=== PATIENT | female | born 1960 | race Caucasian/White ===

== ENCOUNTER 2017-05-31 00:29 | Emergency (ER) | payer BC ==
[~2017-05-31] VITALS: Ht 157.5 cm; Wt 68.5 kg
[~2017-05-31 00:29] MED LIST: HYDR-3533 PO; METO100T PO; NAPR500 PO; TYLE3 PO
[2017-05-31 00:33] VITALS: RESP 18
--- NOTE | 2017-05-31 00:40 | PD ---
HPI Chief Complaint: fall Time Seen by Provider: 00:34 Travel History International Travel<30 days: No Contact w/Intl Traveler<30days: No Traveled to known affect area: No History of Present Illness HPI Patient was at home, drinking alcohol and socializing with her friends, when she misstepped and fell down on her outstretched hands. The patient is mainly complaining of tingling to her hands. No major deformity. Patient states that she has carpal tunnel. Patient denies that she lost consciousness. Patient denies any alleviating or aggravating factors. Patient denies any associated factors such as fever, headache, rash, chest pain, abdominal pain, back pain nausea, vomiting, or diarrhea. No known drug allergy Past medical history significant for hypertension, lap band, PFSH Past Medical History Cardiovascular Problems: Yes (BP) Diminished Hearing: No Hypertension: Yes Musculoskeletal: Yes (BILATERAL KNEES) Past Surgical History Abdominal Surgery: Yes (LAP BAND) Social History Alcohol Use: Yes (SOCIALLY) Tobacco Use: Yes Substance Use: No Allergies-Medications (Allergen,Severity, Reaction): Coded Allergies: No Known Allergies (Verified Adverse Reaction, Unknown, 05/31/17) Reported Meds & Prescriptions Reported Meds & Active Scripts Active Active Prescriptions or Reported Medications Unobtainable Review of Systems General / Constitutional: No: Fever Eyes: No: Visual changes HENT: No: Headaches Cardiovascular: No: Chest Pain or Discomfort Respiratory: No: Shortness of Breath Gastrointestinal: No: Abdominal Pain Genitourinary: No: Dysuria Musculoskeletal: No: Pain Skin: No Rash Neurologic: Positive: Paresthesia (To bilateral hands.) Psychiatric: No: Depression Endocrine: No: Polydipsia Hematologic/Lymphatic: No: Easy Bruising Physical Exam Narrative GENERAL: SKIN: Warm and dry. HEAD: Normocephalic. Abrasion to mid forehead EYES: Pupils equal and round. No scleral icterus. No injection or drainage. ENT: No nasal bleeding or discharge. Mucous membranes pink and moist. NECK: Trachea midline. No JVD. CARDIOVASCULAR: Regular rate and rhythm. RESPIRATORY: No accessory muscle use. Clear to auscultation. Breath sounds equal bilaterally. GASTROINTESTINAL: Abdomen soft, non-tender, nondistended. MUSCULOSKELETAL: Extremities without clubbing, cyanosis, or edema. No obvious deformities. NEUROLOGICAL: Awake and alert. No obvious cranial nerve deficits. Motor grossly within normal limits. Five out of 5 muscle strength in the arms and legs. Normal speech. PSYCHIATRIC: Appropriate mood and affect; insight and judgment normal. Data Data Last Documented VS Vital Signs Date Time Temp Pulse Resp B/P (MAP) Pulse Ox O2 Delivery O2 Flow Rate FiO2 05/31/17 00:52 98.6 71 18 157/86 (109) 98 Room Air Orders Orders Ct Brain W/O Iv Contrast(Rout) (05/31/17 00:34) Blood Glucose (05/31/17 00:34) MDM Medical Decision Making Medical Screen Exam Complete: Yes Emergency Medical Condition: Yes Medical Record Reviewed: Yes Differential Diagnosis Intracranial hemorrhage versus skull contusion versus carpal tunnel Narrative Course on patient evaluation, patient was noted to have a small abrasion to her forehead. Due to this evidence of traumatic blunt head trauma, the patient will have a CT head prior to discharge. CT head read by radiologist as normal examination. Diagnosis Primary Impression: Paresthesia due to carpal tunnel syndrome Additional Impression: Forehead abrasion Patient Instructions: Abrasion (ED), Carpal Tunnel Syndrome (DC), General Instructions Scripts Unable to Obtain Active Prescriptions or Reported Meds Disposition: 01 DISCHARGE HOME Condition: Stable Arnaldo May MD May 31, 2017 00:40
[2017-05-31 00:52] VITALS: BP 157/86; PULSE 71; RESP 18; TEMP 98.6; O2SAT 98
--- NOTE | 2017-05-31 01:47 | RADRPT ---
EXAM DATE/TIME: 05/31/2017 01:23 [facility] COMPARISON: No previous studies available for comparison. INDICATIONS : Trauma, fall. RADIATION DOSE: 56.37 CTDIvol (mGy) ; Patient motion MEDICAL HISTORY : Hypertension. SURGICAL HISTORY : None. ENCOUNTER: Initial ACUITY: 1 day PAIN SCALE: 0/10 LOCATION: cranial TECHNIQUE: Multiple contiguous axial images were obtained of the head. Using automated exposure control and adj ustment of the mA and/or kV according to patient size, radiation dose was kept as low as reasonably a chievable to obtain optimal diagnostic quality images. DICOM format image data is available electro nically for review and comparison. FINDINGS: CEREBRUM: The ventricles are normal for age. No evidence of midline shift, mass lesion, hemorrhage or acute in farction. No extra-axial fluid collections are seen. POSTERIOR FOSSA: The cerebellum and brainstem are intact. The 4th ventricle is midline. The cerebellopontine angle i s unremarkable. EXTRACRANIAL: The visualized portion of the orbits is intact. SKULL: The calvaria is intact. No evidence of skull fracture. CONCLUSION: No acute disease. Don Lopez Jr., MD on May 31, 2017 at 1:45 Board Certified Radiologist. This report was verified electronically.
== END 2017-05-31 02:17 | disposition home or self-care (01) ==
LOC: PHED 00:29
DX: R20.2 Paresthesia of skin (principal); G56.00 Carpal tunnel syndrome, unspecified upper limb; S00.81XA Abrasion of other part of head, initial encounter; I10 Essential (primary) hypertension; W01.198A Fall on same level from slipping, tripping and stumbling with subsequent striking against other object, initial encounter; Y92.009 Unspecified place in unspecified non-institutional (private) residence as the place of occurrence of the external cause; Z72.0 Tobacco use
CPT/HCPCS: 70450; 99284

== ENCOUNTER 2018-03-26 05:24 | Inpatient (IN) ==
[2018-03-26] MEDS ORDERED: Ropivacaine 0.5% PF Inj 20 ML Vial ONE (05:52)
[2018-03-26] MEDS ORDERED: Chlorhexidine 4% Topical 120 APPLIC/120 ML Bottle TOPICAL SCH (06:00)
[2018-03-26] MEDS ORDERED: ceFAZolin 2 GM Premix Inj 2 GM/50 ML PIGGYBACK IV.SIG SCH (06:00)
[2018-03-26] MEDS ORDERED: Chlorhexidine Gluconate 2% 1 Pack (2 Cloths) TOPICAL ONE (06:06)
[2018-03-26] MEDS ORDERED: Metoprolol Tartrate 25 MG Tablet PO ONE (06:06)
[2018-03-26] MEDS ORDERED: Famotidine PF Inj 20 MG/2 ML Vial ONE (06:21)
[2018-03-26] MEDS ORDERED: Propofol Inj 500 MG/50 ML Vial ONE (06:21)
[2018-03-26] MEDS ORDERED: fentaNYL Citrate Inj 100 MCG/2 ML Ampul ONE (06:21)
[2018-03-26] MEDS ORDERED: fentaNYL Citrate Inj 250 MCG/5 ML Ampul ONE (06:47)
[2018-03-26] MEDS ORDERED: Tranexamic Acid Inj 700 MG in Sodium Chlor 0.9% Inj 100 ML IV.SIG SCH ×2 (07:00→10:00)
[2018-03-26] MEDS ORDERED: Sodium Chlor 0.9% Inj 500 ML IV.SIG SCH (07:00)
[2018-03-26] MEDS ORDERED: Sodium Chlor 0.9% Inj 80 ML, Bupivacaine Liposo PF 1.3% Inj 20 ML P-ARTICULR SCH ×2 (07:00)
[2018-03-26] MEDS ORDERED: Tranexamic Acid Inj 0 MG in Sodium Chlor 0.9% Inj 100 ML IV.SIG ONE (09:00)
[2018-03-26] MEDS ORDERED: [UNRECOGNIZED DRUG - OTHER] PO SCH (09:00)
[2018-03-26] MEDS ORDERED: Aluminum/Magnesium/Simethacone Susp 30 ML UDC PO PRN (09:00)
[2018-03-26] MEDS ORDERED: Ketorolac Inj 30 MG/ML (IVP) Vial IV.PUSH SCH (09:00)
[2018-03-26] MEDS ORDERED: Bisacodyl 10 MG Supp RECTAL PRN (09:00)
[2018-03-26] MEDS ORDERED: Post-op Orders (for Pharmacy) OTHER STA (09:00)
--- NOTE | 2018-03-26 09:03 | P.DCO ---
- Physical Therapy Physical Therapy: Gait training Knee: Total knee, Protocol: Right, Gait training, Full weight bearing Right Lower Extremity Weight Bearing: Weight bearing as tolerated Right Lower Extremity Range of Motion: Active ROM (Active, active assisted, passive range of motion. Range of motion goal is 0 degrees extension to 135 degrees of flexion. Range of motion achieved in the operating room was 0 degrees extension to 145 degrees of flexion.) - Nursing Nursing: Dressing changes Dressing changes: Other Additional instructions: Do not remove Dermabond Prineo (the tape that is directly on the wound). Leave the Optifoam dressing in place for 7 days. After this, daily dressing changes will be done taking care to avoid injuring or removing the Dermabond Prineo. - Certification Need for Home Health services: I have seen patient Mariella Irby on 03/26/18. My clinical findings support the need for the requested home health care services because: Need for Home Health Services: Deconditioned with increased weakness, Limited ability to care for self, High risk of falls Homebound Certification: I certify that my clinical findings support that this patient is homebound because: Homebound Certification: Post-op weakness, Unsteady gait/balance, Unsafe to leave home unassisted
--- NOTE | 2018-03-26 09:16 | P.OP ---
- Preoperative Diagnosis (1) Primary osteoarthritis of right knee - Postoperative Diagnosis (1) Primary osteoarthritis of right knee Date of procedure: 03/26/18 Procedure: Right total knee arthroplasty using [place] Triathlon prosthesis (uncemented) Anesthesia: GETA, regional (Adductor canal block), local (Exparel) Surgeon: Keon Edwards MD Accelerator Technician: IAIN Roy Estimated blood loss (mL): 300 Tourniquet time (min): 0 Pathology: none sent Operation and Findings: Indications and Findings: This 58-year-old woman has had a 15-year history of progressive right knee pain. She has had increasing pain over that time increasingly over the past several months. She has limited ambulation to just a few feet. She leans on a cart when shopping. She has pain immediately on weightbearing and also has rest pain. She feels things moving in her knee. She has not responded to conservative measures recently including anti- inflammatory agents, analgesics, activity modification, intra-articular corticosteroids exercise and ambulatory aids. Physical findings showed genu varum with medial laxity and severe crepitation in the knee. Radiographic findings showed loss of joint space and [id number] in the medial compartment and approaching that of the lateral compartment. There is obvious eburnation. There is loss of joint space in the patellofemoral compartment with erosion of the trochlea and patella and large medial and lateral osteophytes and a detached suprapatellar osteophyte. Operative findings: There was severe tricompartmental osteoarthritis in the knee with loss to [id number] in the medial compartment and significant change including some areas of loss of articular cartilage to exposed subchondral bone in the lateral compartment. The patellofemoral compartment had significant change as well with there being lateral erosion and massive osteophytes laterally and in the supra talar area. These were somewhat detached. The lateral osteophyte on the patella was essentially an eroded lateral facet. There were alts also multiple other loose bodies that were semi-attached and not attached. There was a degenerative cyst in the distal femur laterally. The thickness of the patella laterally was less than 4 mm. The prosthesis used was a [place] Triathlon prosthesis. The femur was a size 3, uncemented, cruciate retaining. The tibial baseplate was a size 3 Tritanium with a 9 mm, cruciate retaining, X3 polyethylene spacer. The patella was not replaced. The patient was brought to the clean-air operating suite after administration of a regional anesthetic by adductor canal block. A spinal anesthetic was administered. The position was supine with a small bolster under the hip on the operative side. A pneumatic tourniquet was applied to the upper thigh. The lower extremity was prepped with alcohol, Hibiclens and ChloraPrep and draped in the usual manner with the knee draped free. An appropriate timeout procedure was carried out. An incision was made from about 3 fingerbreadths above the superior medial pole of patella down the tibial tubercle on the medial side. The incision was deepened through the subcutaneous tissue to the retinacular structures which were exposed medially and laterally. A medial retinacular incision was made from the superior medial pole of patella down the tibial tubercle and up into the quadriceps tendon, splitting it longitudinally in the medial one third. The patella was reflected. The infrapatellar fat pad was debulked. The anterior cruciate ligament was excised. Medial and lateral meniscectomies were initiated. Fenestrations were made in the distal femur and proximal tibia for intramedullary referencing guides. Multiple semi-attached loose bodies were excised including a massive one from the superior aspect of the patella, 2 in the lateral gutter and a sizable loose body that was obviously a semi-attached fractured lateral facet of the patella that was thinned to about 2 mm and had fractured vertically with a large osteophyte off the lateral side of it. These were shelled out, leaving the underlying soft tissues. This left the patella diminished in size. The remaining osteophytes were trimmed and pared around the periphery of the patella. The patella was then checked against the sizing guides for the smallest available patella. This would not fit the smallest available patella. The lateral facet of the patella was less than 4 mm and would not support a patella prosthesis. For this reason, it was elected not to resurface the patella. The distal femoral cutting guide and jig were assembled for a 5, 8 mm cut. When this was fit into position,the cutting block was stabilized with pins. The jig was removed. The distal femoral cut was completed with the oscillating saw. The sizing guide was positioned in place along Whitesides line and the epicondylar axis and stabilized with pins. The femoral size was determined as noted above. The 4-in-1 cutting block was positioned in place. Anterior and posterior cuts were made followed by posterior and anterior chamfer cuts taking care to prevent injury to ligamentous structures. Osteophytes were trimmed from the distal femur. A bone plug was placed into the fenestration of the distal femur. The proximal tibia was exposed. The medial and lateral meniscectomies were completed. The proximal tibial cutting guide was positioned in place and stabilized with a pin for rotation. The depth of cut was verified with a stylus off the high side. The cutting block was stabilized with pins. The jig was removed. The depth of cut was verified and adjusted appropriately with the use of the spacer block. The proximal tibial cut was made with the oscillating saw taking care to prevent injury to neurovascular and ligamentous structures. Proximal tibial bone was removed. Local anesthetic was administered with Exparel in the posterior capsule. The tibial baseplate trial was positioned in place. After verifying the appropriate size, the base plate trial was positioned in place along with its spacer. The femoral component was impacted into place. The alignment was checked. The tibial baseplate was pinned in place on the tibia. The knee was taken through a range of motion which was easily 0 extension to 145 degrees. The femoral drill holes were made. The femoral trials were removed. The tibial spacer was removed. A bone plug was placed into the proximal tibia. The tibial punch was impacted through the proximal tibial punch guide. This was all removed followed by placement of the tibial drill guide. The tibial drill holes were made. The guide was removed. The cut ends of bone were cleaned with pulse lavage. The tibial baseplate was impacted into place and seated appropriately. The spacer was inserted. The the femoral component was impacted into place and seated appropriately. The patella component was seated with the patellar vice and tightened appropriately. The knee was taken through a range of motion which was comparable to the previous range of motion with excellent stability in flexion and extension and appropriate patellofemoral tracking. The remainder of the Exparel was injected throughout the knee as a local anesthetic. Drains were brought out the superior lateral aspect of the suprapatellar pouch. Wound closure commenced using 0 Vicryl interrupted figure- of-eight sutures for the capsular and fascial structures, 2-0 Vicryl interrupted simple sutures with buried knots for the subcutaneous tissues and 4- 0 Monocryl, continuous subcuticular closure for the skin. The wound was dressed with Dermabond Prineo followed by an OPTifoam AG dressing. Sterile soft roll with a cooling pad and Case bandage from the base of the toes to mid thigh were applied. Patient was transferred from the operating room to the recovery room in satisfactory condition having tolerated procedure well. Counts were correct. Specimens: None. Estimated blood loss: 300 mL
[2018-03-26] MEDS ORDERED: *Meperidine Inj 25 MG/ML Vial PERIprocedural Use ONLY ONE (09:49)
[2018-03-26] MEDS: Spironolactone 25 MG Tablet PO SCH (09:54)
[2018-03-26] MEDS: Senna/Docusate Sodium 8.6/50 MG Tablet PO SCH ×2 (09:57→21:52)
[2018-03-26] MEDS ORDERED: Ketorolac Inj 30 MG/ML (IVP) Vial ONE (10:00)
--- NOTE | 2018-03-26 10:38 | XR ---
EXAM DATE: 03/26/2018 10:34 AM EST AGE/SEX: 58 years / Female INDICATIONS: Post op, right knee surgery. CLINICAL DATA: This is the patient's initial encounter. Patient reports that signs and symptoms have been present for 1 day and indicates a pain score of 3/10. MEDICAL/SURGICAL HISTORY: None. None. COMPARISON: POI, XR KNEE COMPLETE, RIGHT, 09/28/2017. . FINDINGS: Right total hip arthroplasty has been performed with prosthesis in good position. CONCLUSION: Status post right total hip arthroplasty with prosthesis in good position. Electronically signed by: Fredrick Lynn MD Board Certified Radiologist 03/26/2018 10:36 AM EST
[2018-03-26] MEDS ORDERED: Acetaminophen 325 MG Tablet PO PRN (10:56)
[2018-03-26] MEDS ORDERED: Morphine Inj 4 MG/ML Vial IV.PUSH PRN (10:58)
[2018-03-26] MEDS: ceFAZolin Inj 1 GM in Sodium Chlor 0.9% Inj 100 ML IV.SIG SCH ×2 (12:45→18:00)
--- NOTE | 2018-03-26 15:04 | P.CON ---
History of Present Illness Service: [facility] service Consult date: 03/26/18 Requesting Physician: Keon Edwards Reason for Consult: Medical management Primary Care Provider: Dalton Tom MD Chief Complaint: Right knee pain increasing difficulty in ambulation History of Present Illness: Patient is a very pleasant 58-year-old female with known history of hypertension history of obesity status post lap band surgery 10 years ago who still smokes 12-15 sticks half pack per day who was admitted under orthopedic services and underwent right total knee arthroplastic surgery and this a.m. Per patient has been having right knee pain for the past 4 years now with increasing difficulty in ambulation for the past months which prompted the surgery. Patient states she has all DMEs at home. [facility] consulted for medical management. Patient on review PCP- Social history smokes 12-15 sticks half pack per day, drinks 5-6 beers of alcohol daily daily denies any IV drug use Family history positive for CAD and hypertension, dementia father. As outpatient medications are Lopressor 100 mg p.o. at bedtime, Spironolactone 25 mg daily, valsartan 320 mg at bedtime. Currently in-house patient is on aspirin twice daily for DVT prophylaxis. She is up-to-date with her mammogram. She has a colonoscopy scheduled for this year. [facility] - History History Provided By: Patient - Medical History Medical History: Medical History (Last Reviewed 03/26/18 @ 12:59 by Jyoti Fox) Arthritis Hypertension Joint pain Wears glasses - Surgical History Surgical History: Surgical History (Last Reviewed 03/26/18 @ 12:59 by Jyoti Fox) History of tonsillectomy Hx of laparoscopic gastric banding - Tobacco History Second Hand Smoke Exposure: Yes Tobacco Use In Past 30 Days: Yes Smoking Status: Current every day smoker Tobacco Type: Cigarettes - Alcohol History How Often Do You Have a Drink Containing Alcohol: 4 or more times a week - Substance Use History Substance History: Active Abuse - Substance Use Type Marijuana Route Used: Inhalation Reason for Use: Calm Down, Feels Good - Travel History Recent Travel in the [place] Within the Last 8 Weeks: No Recent Travel Out of the Country Within the Last 8 Weeks: No - Immunization History Tetanus Immunization: Unsure Hx Influenza Vaccine This Season: No Medications and Allergies Active Medications: Active Medications Acetaminophen (Tylenol) 650 mg PO Q6H PRN PRN Reason: Pain Less Than 3 On Scale Hydrocodone Bitart/Acetaminophen ([place] 7.5/325) 2 tab PO Q6H PRN PRN Reason: PAIN SCALE 7 TO 10 SEVERE Hydrocodone Bitart/Acetaminophen ([place] 7.5/325) 1 tab PO Q4H PRN PRN Reason: PAIN SCALE 4 TO 6 MODERATE Al Hydrox/Mg Hydrox/Simethicone (Mag-Al Plus Susp Liq) 30 ml PO Q6H PRN PRN Reason: INDIGESTION Al Hydroxide/Mg Hydroxide (Milk Of Magnesia Liq) 30 ml PO BID PRN PRN Reason: Mild Constipation Aspirin (Aspirin Chew) 81 mg PO BID [facility] Last Admin: 03/26/18 11:33 Dose: 81 mg Bisacodyl (Dulcolax Supp) 10 mg RECTAL DAILY PRN PRN Reason: SEVERE CONSITIPATION Chlorhexidine Gluconate (Hibiclens 4% Topical) 1 applicatio TOPICAL ONCE [facility] Stop: 03/30/18 05:59 Last Admin: 03/26/18 06:18 Dose: 1 applicatio Sodium Chloride 80 ml/ (Bupivacaine Liposome 20 ml) 0 ml P-ARTICULR ONCE [facility] Stop: 03/26/18 15:00 Last Admin: 03/26/18 07:43 Dose: 1.3 bag Diphenhydramine HCl (Benadryl) 25 mg PO Q6H PRN PRN Reason: ITCHING Cefazolin Sodium/Dextrose (Ancef 2 Gm Premix Inj) 2 gm in 50 mls @ 100 mls/hr 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 [facility] Stop: 03/30/18 05:59 Last Infusion: 03/26/18 07:22 Dose: Infused Tranexamic Acid 700 mg/ Sodium (Chloride) 107 mls @ 200 mls/hr IV.SIG ONCE [facility] Stop: 03/26/18 15:00 Last Infusion: 03/26/18 07:43 Dose: Infused Tranexamic Acid 700 mg/ Sodium (Chloride) 107 mls @ 200 mls/hr IV.SIG ONCE [facility] Stop: 03/26/18 18:00 Last Admin: 03/26/18 09:54 Dose: 200 mls/hr Lactated Ringer's (Lr 1000 Ml Inj) 1,000 mls @ 30 mls/hr IV.SIG .Q24H [facility] Stop: 03/27/18 06:14 Last Infusion: 03/26/18 08:47 Dose: Infused Sodium Chloride (Ns Inj) 500 mls @ 30 mls/hr IV.SIG .Q10H [facility] Cefazolin Sodium 1 gm/ Sodium (Chloride) 100 mls @ 200 mls/hr IV.SIG Q6H [facility] Stop: 03/27/18 01:29 Last Infusion: 03/26/18 13:15 Dose: Infused Lactated Ringer's (Lr 1000 Ml Inj) 1,000 mls @ 80 mls/hr IV.CONT .[id number] [facility] Last Admin: 03/26/18 09:54 Dose: 80 mls/hr Ketorolac Tromethamine (Toradol Inj) 15 mg IV.PUSH Q6H [facility] Stop: 03/28/18 04:01 Lactulose (Lactulose Liq) 30 ml PO DAILY PRN PRN Reason: SEVERE CONSITIPATION Metoprolol Succinate (Toprol Xl) 100 mg PO [facility] Miscellaneous Information (Misc Nursing Information) 0 each OTHER UNSCH PRN PRN Reason: SEE LABEL COMMENTS Stop: 03/27/18 09:24 Morphine Sulfate (Morphine Inj) 2 mg IV.PUSH Q3H PRN PRN Reason: BREAKTHROUGH PAIN Multivitamins/Minerals (Theragran-M) 1 tab PO DAILY [facility] Ondansetron HCl (Zofran Odt) 4 mg PO Q6H PRN PRN Reason: NAUSEA OR VOMITING Patient Own Medication: Valsartan 320mg Tablet 0 each PO [facility] Senna/Docusate Sodium (Bárbara-Colace) 1 tab PO BID [facility] Last Admin: 03/26/18 09:57 Dose: Not Given Sennosides (Senokot) 17.2 mg PO BID PRN PRN Reason: Moderate Constipation Sodium Chloride (Ns Flush) 2 ml IV.FLUSH BID [facility] Last Admin: 03/26/18 09:57 Dose: 2 ml Sodium Chloride (Ns Flush) 2 ml IV.FLUSH PRN PRN PRN Reason: FLUSH AFTER USING IV ACCESS Spironolactone (Aldactone) 25 mg PO DAILY [facility] Last Admin: 03/26/18 09:54 Dose: Not Given Zolpidem Tartrate (Ambien) 5 mg PO HS PRN PRN Reason: INSOMNIA Allergies Allergy/AdvReac Type Severity Reaction Status Date / Time No Known Allergies Allergy Verified 03/26/18 06:02 Home Medications Medication Instructions Recorded Confirmed Type aspirin [Aspirin Low Dose] 81 mg PO DAILY 03/14/18 03/26/18 History mv, min 23-dvde-vpise-docusate 1 tab PO DAILY 03/14/18 03/26/18 History [Thrivite-19] metoprolol succinate 100 mg PO HS 03/15/18 03/26/18 History spironolactone 25 mg PO DAILY 03/15/18 03/26/18 History valsartan 320 mg PO HS 03/15/18 03/26/18 History Physical Exam Vital signs: Vital Signs 03/26/18 06:09 03/26/18 09:26 03/26/18 09:30 Temperature 98.1 F 97.7 F Pulse Rate 55 L 70 61 Respiratory Rate 20 20 15 Blood Pressure 169/100 H 155/106 H 157/84 H Pulse Oximetry 100 95 100 03/26/18 09:45 03/26/18 10:00 03/26/18 10:15 Temperature Pulse Rate 59 L 58 L 60 Respiratory Rate 21 19 21 Blood Pressure 160/90 H 151/85 H 155/87 H Pulse Oximetry 100 100 100 03/26/18 10:30 03/26/18 10:39 03/26/18 11:00 Temperature Pulse Rate 59 L 62 Respiratory Rate 15 20 Blood Pressure 151/94 H 145/81 H Pulse Oximetry 100 100 100 03/26/18 11:30 03/26/18 12:00 03/26/18 12:56 Temperature 98 F Pulse Rate 60 65 78 Respiratory Rate 17 15 19 Blood Pressure 139/79 150/83 H 153/90 H Pulse Oximetry 100 100 100 Intake & Output 03/25/18 03/26/18 03/26/18 18:59 06:59 18:59 Intake Total 2257 / 2257 Output Total 380 / 380 Balance 1877 / 1877 Weight 69.7 kg 69.7 kg Intake: IV 1257 / 1257 LR 1000 mL Inj 1,000 ML @ 30 1000 / 1000 mls/hr IV.SIG .Q24H [facility] Rx#: [id number] Cyklokapron Inj 700 MG In NS 107 / 107 Inj 100 ML @ 200 mls/hr IV.SIG ONCE [facility] Rx#:[id number] Ancef 2 GM Premix Inj 2 gm In 50 / 50 50 ml @ 100 mls/hr 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 [facility] Rx#:[id number] Ancef Inj 1 GM In NS Inj 100 ML 100 / 100 @ 200 mls/hr IV.SIG Q6H [facility] Rx #:[id number] Anesthesia Amount 1000 / 1000 Output: Estimated Blood Loss 300 / 300 Wound Drainage 80 / 80 # 1 Right Medial Knee Hemovac 80 / 80 Other: Date of Last Bowel Movement 03/25/18 Weight On Admission 69.7 kg Narrative: Awake alert oriented x3 speech clear not in distress HEENT exam anicteric sclerae throat no erythema Neck supple no nuchal rigidity Chest lungs bilateral breath sounds clear no rales no wheezes Heart regular rhythm Abdomen soft flabby nontender with good bowel sounds Extremities right knee with postop dressing in place, no calf swelling or tenderness, good peripheral pulses Results - Labs Labs: Laboratory Results - last 24 hr 03/26/18 05:53 Blood Type O Negative Blood Type Recheck Required Antibody Screen Negative - Imaging Impressions Knee X-Ray 03/26/18 08:58 CONCLUSION: Status post right total hip arthroplasty with prosthesis in good position. Assessment and Plan - Plan 58-year-old female presenting with increasing pain and difficulty ambulation of the right knee worsening over. Of time Status post right total knee arthroplasty Followed by orthopedic service X-ray postprocedure shows good anatomical alignment. PT following History of hypertension -No history of CAD, no history of CVA Continue in her regimen of Toprol 100 mg daily hs, Spironolactone 25 mg daily valsartan 320 mg daily at bedtime. Smoker patient counseled extensively DVT prophylaxis patient is on aspirin twice daily per orthopedic services Discharge planning patient prefers to go home with home PT
[2018-03-26] MEDS: Multivitamin/Minerals Therapeutic Tablet PO SCH (15:18)
[2018-03-26] MEDS: Ketorolac Inj 30 MG/ML (IVP) Vial IV.PUSH SCH ×2 (15:18→21:52)
[2018-03-26] MEDS ORDERED: VALSARTAN 320 MG PO SCH ×3 (21:00)
[2018-03-26] MEDS ORDERED: Zolpidem Tartrate 5 MG Tablet PO PRN (21:00)
[2018-03-27] MEDS: ceFAZolin Inj 1 GM in Sodium Chlor 0.9% Inj 100 ML IV.SIG SCH (00:16)
[2018-03-27] MEDS: Ketorolac Inj 30 MG/ML (IVP) Vial IV.PUSH SCH ×2 (03:57→11:58)
[2018-03-27 05:09] LABS: Hemoglobin 12.3 gm/dL (11.6-15.3)
--- NOTE | 2018-03-27 08:02 | P.PNOP ---
Subjective Interval history: Postop day #1 She is doing well. She has minimal complaints related to the knee. She has less pain than she did previously. She also indicates that her blood pressure is down from what it was previously. She has been walking to the bathroom. Physical therapy reports that the ambulation distance was 20 feet twice, limited by nausea. The range of motion was -5 degrees of extension to 90 degrees of flexion. Physical Exam Vital signs: Vital Signs 03/26/18 09:26 03/26/18 09:30 03/26/18 09:45 Temperature 97.7 F Pulse Rate 70 61 59 L Respiratory Rate 20 15 21 Blood Pressure 155/106 H 157/84 H 160/90 H Pulse Oximetry 95 100 100 03/26/18 10:00 03/26/18 10:15 03/26/18 10:30 Temperature Pulse Rate 58 L 60 59 L Respiratory Rate 19 21 15 Blood Pressure 151/85 H 155/87 H 151/94 H Pulse Oximetry 100 100 100 03/26/18 10:39 03/26/18 11:00 03/26/18 11:30 Temperature Pulse Rate 62 60 Respiratory Rate 20 17 Blood Pressure 145/81 H 139/79 Pulse Oximetry 100 100 100 03/26/18 12:00 03/26/18 12:56 03/26/18 16:00 Temperature 98 F 98.3 F Pulse Rate 65 78 75 Respiratory Rate 15 19 18 Blood Pressure 150/83 H 153/90 H 137/82 Pulse Oximetry 100 100 97 03/26/18 18:18 03/26/18 21:02 03/27/18 00:27 Temperature 98.6 F 98.4 F Pulse Rate 85 72 Respiratory Rate 18 16 16 Blood Pressure 133/87 121/70 Pulse Oximetry 96 95 03/27/18 04:29 Temperature 98.6 F Pulse Rate 76 Respiratory Rate 17 Blood Pressure 133/77 Pulse Oximetry 97 Intake & Output 03/26/18 03/27/18 03/27/18 18:59 06:59 18:59 Intake Total 3197 / 3197 2700 / 2700 Output Total 520 / 520 260 / 260 Balance 2677 / 2677 2440 / 2440 Weight 69.7 kg 72.9 kg Intake: IV 1357 / 1357 2100 / 2100 LR 1000 mL Inj 1,000 ML @ 80 2000 / 2000 mls/hr IV.CONT .[id number] [facility] Rx# :[id number] LR 1000 mL Inj 1,000 ML @ 30 1000 / 1000 mls/hr IV.SIG .Q24H [facility] Rx#: [id number] Cyklokapron Inj 700 MG In NS 107 / 107 Inj 100 ML @ 200 mls/hr IV.SIG ONCE [facility] Rx#:[id number] Ancef 2 GM Premix Inj 2 gm In 50 / 50 50 ml @ 100 mls/hr IV.SIG RISK ASSESSMENT ANALYST [facility] Rx#:[id number] Ancef Inj 1 GM In NS Inj 100 ML 200 / 200 100 / 100 @ 200 mls/hr IV.SIG Q6H [facility] Rx #:[id number] Oral 840 / 840 600 / 600 Anesthesia Amount 1000 / 1000 Output: Estimated Blood Loss 300 / 300 Wound Drainage 220 / 220 260 / 260 # 1 Right Medial Knee Hemovac 220 / 220 260 / 260 Other: # Voids 2 2 Date of Last Bowel Movement 03/25/18 03/25/18 # Bowel Movements 0 0 Narrative: She is resting comfortably, supine in bed. The dressing is dry and intact. Results - Labs CBC & Chem 7: 03/27/18 04:22 Laboratory Results - last 24 hr 03/27/18 04:22 Hgb 12.3 Hct 36.0 - Imaging Impressions Knee X-Ray 03/26/18 08:58 CONCLUSION: Status post right total hip arthroplasty with prosthesis in good position. Assessment and Plan - Ortho Post Op Day # 1 - Problem List (1) Status post total right knee replacement not using cement Code(s): Z96.651 - Presence of right artificial knee joint Status: Acute Onset Date: ~03/26/18 Plan: Continue postop care and PT. I have explained the findings to her time of surgery and the procedure performed. - Assessment and Plan Condition: Good. Orthopedically stable. DVT prophylaxis: TEDs, aspirin, sequentials. Discharge plans: Home with home health care. An appointment was scheduled through the office. Prescriptions: [place] 7.5/325; Patient is having significant pain caused by a total knee arthroplasty which will last more than 3 days. Trial of Tylenol has not helped. I believe that it is medically necessary to treat patients pain because it is affecting patients ability to participate in postoperative rehabilitation and perform activities of daily living in a comfortable and efficient manner. I have checked the [facility] database prior to completing the prescription.
--- NOTE | 2018-03-27 08:08 | P.DS ---
Date of admission: 03/26/18 05:24 Primary care physician: Dalton Tom MD Attending physician on discharge: Keon Edwards Anticipated date of discharge: 03/27/18 Brief History from admission: This 58-year-old woman has had a long right knee which has been nonresponsive to conservative measures including anti-inflammatory agents, analgesics, activity modification, exercise. She had rest pain. She has pain with stairs. Pain standing from a seated position. Physical findings showed genu varum with crepitation on range of motion, palpable osteophytes and significant antalgic gait. Radiographic findings showed severe osteoarthritis with loss of articular cartilage predominantly in the medial but also in the lateral compartment, patellofemoral arthrosis and multiple loose bodies and large osteophytes throughout the knee. There is significant medial subchondral sclerosis and some lateral. DS: Diagnosis - Discharge Diagnosis (1) Status post total right knee replacement not using cement Status: Acute Diagnosis: Principal (2) Primary osteoarthritis of right knee Status: Chronic Diagnosis: Principal DS: Medications - Discharge Medications Prescriptions: hydrocodone-acetaminophen 1 tab PO Q4H PRN 7 Days #42 tab PRN Reason: Pain, Severe DS: Summary Hospital Course: The patient was admitted as noted above. The above noted operative procedure was carried out that day. Preoperatively prophylactic antibiotics were administered Ancef according to protocol. These were continued postoperatively. The patient also received tranexamic acid to help with hemostasis according to protocol. In the postanesthesia care unit mechanical methods of DVT prophylaxis in the form of KATHY stockings and sequentials were initiated. Physical therapy was initiated on the day of surgery. On postoperative day #1 physical therapy continued. DVT prophylaxis with 81 mg was initiated at this time. The patient continued physical therapy throughout the hospitalization. The distance walked and range of motion improved throughout the hospitalization. The patient was discharged on postoperative day 1 with the disposition being to home health care. An appointment for follow-up was made prior to admission. - Time Spent with Patient Total time spent providing and/or coordinating discharge services: Less than 30 minutes - Quality: VTE Deep Vein Thrombosis/Pulmonary Embolism Present on Admission: No Exam Vital signs: Vital Signs 03/26/18 09:26 03/26/18 09:30 03/26/18 09:45 Temperature 97.7 F Pulse Rate 70 61 59 L Respiratory Rate 20 15 21 Blood Pressure 155/106 H 157/84 H 160/90 H Pulse Oximetry 95 100 100 03/26/18 10:00 03/26/18 10:15 03/26/18 10:30 Temperature Pulse Rate 58 L 60 59 L Respiratory Rate 19 21 15 Blood Pressure 151/85 H 155/87 H 151/94 H Pulse Oximetry 100 100 100 03/26/18 10:39 03/26/18 11:00 03/26/18 11:30 Temperature Pulse Rate 62 60 Respiratory Rate 20 17 Blood Pressure 145/81 H 139/79 Pulse Oximetry 100 100 100 03/26/18 12:00 03/26/18 12:56 03/26/18 16:00 Temperature 98 F 98.3 F Pulse Rate 65 78 75 Respiratory Rate 15 19 18 Blood Pressure 150/83 H 153/90 H 137/82 Pulse Oximetry 100 100 97 03/26/18 18:18 03/26/18 21:02 03/27/18 00:27 Temperature 98.6 F 98.4 F Pulse Rate 85 72 Respiratory Rate 18 16 16 Blood Pressure 133/87 121/70 Pulse Oximetry 96 95 03/27/18 04:29 Temperature 98.6 F Pulse Rate 76 Respiratory Rate 17 Blood Pressure 133/77 Pulse Oximetry 97 Intake & Output 03/26/18 03/27/18 03/27/18 18:59 06:59 18:59 Intake Total 3197 / 3197 2700 / 2700 Output Total 520 / 520 260 / 260 Balance 2677 / 2677 2440 / 2440 Weight 69.7 kg 72.9 kg Intake: IV 1357 / 1357 2100 / 2100 LR 1000 mL Inj 1,000 ML @ 80 2000 / 2000 mls/hr IV.CONT .[id number] [facility] Rx# :[id number] LR 1000 mL Inj 1,000 ML @ 30 1000 / 1000 mls/hr IV.SIG .Q24H [facility] Rx#: [id number] Cyklokapron Inj 700 MG In NS 107 / 107 Inj 100 ML @ 200 mls/hr IV.SIG ONCE [facility] Rx#:[id number] Ancef 2 GM Premix Inj 2 gm In 50 / 50 50 ml @ 100 mls/hr IV.SIG AIRBRUSH ARTIST [facility] Rx#:[id number] Ancef Inj 1 GM In NS Inj 100 ML 200 / 200 100 / 100 @ 200 mls/hr IV.SIG Q6H [facility] Rx #:[id number] Oral 840 / 840 600 / 600 Anesthesia Amount 1000 / 1000 Output: Estimated Blood Loss 300 / 300 Wound Drainage 220 / 220 260 / 260 # 1 Right Medial Knee Hemovac 220 / 220 260 / 260 Other: # Voids 2 2 Date of Last Bowel Movement 03/25/18 03/25/18 # Bowel Movements 0 0 Narrative: She is resting comfortably, supine in bed. The dressing is dry and intact. Results Procedures completed during hospitalization: Right total knee arthroplasty using Milad Triathlon prosthesis (uncemented) on 03/26/2018. Labs on day of discharge: Labs from last 24 hours 03/27/18 04:22 Hgb 12.3 Hct 36.0 - Impressions ITS Impressions Knee X-Ray 03/26/18 08:58 CONCLUSION: Status post right total hip arthroplasty with prosthesis in good position. Discharge Plan - Discharge Disposition Patient Disposition: /Home Health Service - Discharge Condition Condition: Stable - Discharge Order Discharge Orders: Discharge Order (Routine); Ordered 03/27/18 Ordered By: Keon Edwards - Physicians Team Primary Care Provider: Dalton Tom Attending Provider: Keon Edwards Other Providers: Jen Villarreal MD - Rxs /Orders / Referrals /Forms Prescriptions: New aspirin 81 mg Tablet,Chewable 81 mg PO BID RF: 0 hydrocodone-acetaminophen 7.5-325 mg Tablet 1 tab PO Q4H PRN (Reason: Pain, Severe) 7 Days Qty: 42 RF: 0 Continue metoprolol succinate 100 mg Tablet Extended Release 24 Hr 100 mg PO HS mv, min 34-thwd-zpaco-docusate [Thrivite-19] 29 mg iron-1 mg -25 mg Tablet 1 tab PO DAILY spironolactone 25 mg Tablet 25 mg PO DAILY valsartan 320 mg Tablet 320 mg PO HS Discontinued aspirin [Aspirin Low Dose] 81 mg Tablet,Delayed Release (Dr/Ec) 81 mg PO DAILY Referrals: Keon Edwards MD [Physician] - See Instructions Dalton Tom MD [Primary Care Provider] - See Instructions - Discharge Instructions Patient Printed Instructions: Knee Replacement (DC)
[2018-03-27] MEDS: Spironolactone 25 MG Tablet PO SCH (08:32)
[2018-03-27] MEDS: Multivitamin/Minerals Therapeutic Tablet PO SCH (08:32)
[2018-03-27] MEDS: Senna/Docusate Sodium 8.6/50 MG Tablet PO SCH (08:33)
--- NOTE | 2018-03-27 08:42 | P.PN ---
Subjective Interval history: seen with clemencia at bedside already up and ambulating- prefers to go home with home PT- "got Doctor's choice" pain controlled Physical Exam Vital signs: Vital Signs 03/26/18 09:26 03/26/18 09:30 03/26/18 09:45 Temperature 97.7 F Pulse Rate 70 61 59 L Respiratory Rate 20 15 21 Blood Pressure 155/106 H 157/84 H 160/90 H Pulse Oximetry 95 100 100 03/26/18 10:00 03/26/18 10:15 03/26/18 10:30 Temperature Pulse Rate 58 L 60 59 L Respiratory Rate 19 21 15 Blood Pressure 151/85 H 155/87 H 151/94 H Pulse Oximetry 100 100 100 03/26/18 10:39 03/26/18 11:00 03/26/18 11:30 Temperature Pulse Rate 62 60 Respiratory Rate 20 17 Blood Pressure 145/81 H 139/79 Pulse Oximetry 100 100 100 03/26/18 12:00 03/26/18 12:56 03/26/18 16:00 Temperature 98 F 98.3 F Pulse Rate 65 78 75 Respiratory Rate 15 19 18 Blood Pressure 150/83 H 153/90 H 137/82 Pulse Oximetry 100 100 97 03/26/18 18:18 03/26/18 21:02 03/27/18 00:27 Temperature 98.6 F 98.4 F Pulse Rate 85 72 Respiratory Rate 18 16 16 Blood Pressure 133/87 121/70 Pulse Oximetry 96 95 03/27/18 04:29 Temperature 98.6 F Pulse Rate 76 Respiratory Rate 17 Blood Pressure 133/77 Pulse Oximetry 97 Intake & Output 03/26/18 03/27/18 03/27/18 18:59 06:59 18:59 Intake Total 3197 / 3197 2700 / 2700 Output Total 520 / 520 260 / 260 Balance 2677 / 2677 2440 / 2440 Weight 69.7 kg 72.9 kg Intake: IV 1357 / 1357 2100 / 2100 LR 1000 mL Inj 1,000 ML @ 80 2000 / 2000 mls/hr IV.CONT .[id number] [facility] Rx# :[id number] LR 1000 mL Inj 1,000 ML @ 30 1000 / 1000 mls/hr IV.SIG .Q24H [facility] Rx#: [id number] Cyklokapron Inj 700 MG In NS 107 / 107 Inj 100 ML @ 200 mls/hr IV.SIG ONCE [facility] Rx#:[id number] Ancef 2 GM Premix Inj 2 gm In 50 / 50 50 ml @ 100 mls/hr IV.SIG E COMMERCE SPECIALIST [facility] Rx#:[id number] Ancef Inj 1 GM In NS Inj 100 ML 200 / 200 100 / 100 @ 200 mls/hr IV.SIG Q6H [facility] Rx #:[id number] Oral 840 / 840 600 / 600 Anesthesia Amount 1000 / 1000 Output: Estimated Blood Loss 300 / 300 Wound Drainage 220 / 220 260 / 260 # 1 Right Medial Knee Hemovac 220 / 220 260 / 260 Other: # Voids 2 2 Date of Last Bowel Movement 03/25/18 03/25/18 # Bowel Movements 0 0 Narrative: anicteric lungs clear regular rhythm abdomen soft nontender right LE- post op dressing elastic in place extremities good pulses Results - Labs CBC & Chem 7: 03/27/18 04:22 Laboratory Results - last 24 hr 03/27/18 04:22 Hgb 12.3 Hct 36.0 - Imaging Impressions Knee X-Ray 03/26/18 08:58 CONCLUSION: Status post right total hip arthroplasty with prosthesis in good position. - Procedures Right total knee arthroplasty using Milad Triathlon prosthesis (uncemented) on 03/26/2018. Assessment and Plan - Plan 58-year-old female presenting with increasing pain and difficulty ambulation of the right knee worsening over. Of time Status post right total knee arthroplasty 03/26 Followed by orthopedic service X-ray postprocedure shows good anatomical alignment. PT following History of hypertension -No history of CAD, no history of CVA Continue in her regimen of Toprol 100 mg daily hs, Spironolactone 25 mg daily valsartan 320 mg daily at bedtime. Smoker patient counseled extensively DVT prophylaxis patient is on aspirin twice daily per orthopedic services DC home today with home health care- Doctor's choice OP ff up with PCP- Dr. Tom
[2018-03-27 08:50] VITALS: RESP 18
[2018-03-27 12:07] VITALS: BP 117/70; PULSE 62; TEMP 97.7; O2SAT 97
== END 2018-03-27 16:35 | disposition home health service (06) | DRG 470 ==
LOC: HSDI 05:24 → N06 13:12
PROVIDERS: ADMIT Orthopaedic Surgery; ATTEND Orthopaedic Surgery
CPT/HCPCS: 73560; 85014; 85018; 86850; 86900; 86901; 94150; 97110; 97116; 97150; 97162; 97167; C1776; C9290; J0131; J0690; J1885; J2175; J2250; J2704; J2795; J3010; J7120